=== PATIENT | male | born 1965 | race Caucasian/White ===

== ENCOUNTER → 2018-09-07 15:17 | Outpatient (CLI) | payer BC, SELFPAY ==
[2018-09-07 18:19] LABS: Absolute Lymphocyte Count 2.18 X10^3/ul (0.83-4.51); Absolute Neutrophil Count 3.4 X10^3/uL (2.0-7.7); Basophil# 0.02 X10^3/uL; Basophil% 0.3 % (0-1); Eosinophil# 0.16 X10^3/uL; Eosinophils% 2.6 % (0-5); Hematocrit 42.3 % (40-54); Hemoglobin 13.1 g/dl (13.0-16.5); Lymphocyte # 2.18 X10^3/ul (4.0); Lymphocyte % 35.4 % (19-41); Mean Corpuscular Volume 90.4 fL (80-94); Mean Platelet Vol. 10.9 fl (6.2-12.0); Monocyte# 0.44 X10^3/uL; Monocyte% 7.1 % (0-10); Neutrophil # 3.35 X10^3/uL (2.7-7.7); Neutrophil % 54.4 % (47-70); Platelet Count 223 K/mm3 (150-450); RBC Distribution Width SD 45.9 fl (35.1-43.9); Red Blood Count 4.68 M/mm3 (4.6-6.2); White Blood Count 6.2 K/mm3 (4.4-11.0)
[2018-09-07 18:32] LABS: POSITIVE COUNT NO; POSITIVE DIFFERENTIAL NO; POSITIVE MORPHOLOGY NO
== END ==
PROVIDERS: Family Provider Internal Medicine; PCP Internal Medicine; Referring Provider Nurse Practitioner Family; Visit Provider Nurse Practitioner Family
DX: R63.4 Abnormal weight loss (principal); Z12.5 Encounter for screening for malignant neoplasm of prostate
CPT/HCPCS: 36415; 85025

== ENCOUNTER 2018-09-26 06:13 | Day surgery (SDC) | payer BC, SELFPAY ==
[2018-08-24 16:04] VITALS: BMI 23.6
[2018-09-26 06:26] VITALS: BP 119/81; PULSE 65; RESP 14; TEMP 36.6; O2SAT 100; BMI 23.0
--- NOTE | 2018-09-26 07:55 | HP.PCM_ITS ---
Problem List (1) Screen for colon cancer Status: Acute History of Present Illness Date of Admission: 09/26/18 The patient is a 52 year old M who presents for screening colonoscopy Past Medical History Past Medical History (Chronic Problems): Chronic Problems (Last Reviewed 08/24/18 @ 16:05 by Chey Correia) Osteoarthritis of knees, bilateral (Chronic) Medical History: Medical History (Last Reviewed 09/26/18 @ 07:54 by Brady Lomeli MD) mencus repair and ACL on left knee recostructive right knee Osteoarthritis M19.90 Allergies No Known Allergies Allergy (Unverified 08/24/18 16:05) Home Medications: Ambulatory Orders Medication Instructions Recorded celecoxib 100 mg capsule 100 mg PO BID #180 cap 06/27/18 [place] 1 cap PO DAILY PRN PRN 09/21/18 Surgical History: Surgical History (Last Reviewed 09/26/18 @ 07:54 by Brady Lomeli MD) S/P left rotator cuff repair Z98.890 Smoking Status: Former smoker Tobacco Use: Chew - *Family History Maternal Family History: Family History (Last Reviewed 09/26/18 @ 07:55 by Brady Lomeli MD) Mother Hypertension Breast cancer Cancer of nasal cavity and sinus Hyperlipidemia Father Hypertension Parkinsons Prostate cancer Sister autoimmune disorder, unspecified Review of Systems Cardiovascular: Denies: Chest Pain, Chest Pressure, Chest Tightness, Palpitations Respiratory: Denies: Cough, Hemoptysis, Shortness of breath at rest, Shortness o f breath upon exertion, Wheezing Gastrointestinal: Denies: Abdominal Pain, Constipation, Diarrhea, Hematemesis, Nausea, Melena, Vomiting VTE Information - Inpt Only VTE Present on Admission: No VTE Mechan Device Prophylaxis: None VTE Pharm Prophylaxis ordered?: No Reason prophylaxis not ordered:: Treatment Not Indicated Patient Problems: Active and Suspected Problems (Last Reviewed 08/24/18 @ 16:05 by Chey Correia) Screen for colon cancer (Acute) - Physical Exam General: Alert, Oriented x3 Lungs: Clear to auscultation Cardiovascular: Regular rate, Regular Rhythm, No murmurs Abdomen: Bowel Sounds Present, Soft, Non Tender, Non-Distended Vital Signs Temp Pulse Resp BP Pulse Ox 97.9 F 65 14 119/81 H 100 09/26/18 06:26 09/26/18 06:26 09/26/18 06:26 09/26/18 06:26 09/26/18 06:26 Oxygen Delivery Method Room Air Weight: 174 lb 9.698 oz Body Mass Index (BMI) 23.0 Assessment/Plan All Active Problems (Last Reviewed 08/24/18 @ 16:05 by Chey Correia) Screen for colon cancer (Acute) My plan is to perform a colonoscopy on the patient.
[2018-09-26 07:56] VITALS: BP 116/71; BP 119/81; PULSE 70; RESP 18; TEMP 36.6; O2SAT 100
--- NOTE | 2018-09-26 07:59 | OP.ENDO_ITS ---
Patient Name: Wolfgang Buitrago Procedure Date: 09/26/2018 7:18 AM Date of : 1965 Age: 52 Procedure: Colonoscopy Indications: Screening for colorectal malignant neoplasm Providers: Brady Lomeli MD Referring MD: Brady Lomeli MD Medicines: See the Anesthesia note for documentation of the administered medications Patient Profile: This is a 52 year old male. Refer to note in patient chart for documentation of history and physical. Last Colonoscopy: none. The patient's first colonoscopy is today. Complications: No immediate complications. Procedure: Pre-Anesthesia Assessment: - Prior to the procedure, a History and Physical was performed, and patient medications and allergies were reviewed. The patient's tolerance of previous anesthesia was also reviewed. The risks and benefits of the procedure and the sedation options and risks were discussed with the patient. All questions were answered, and informed consent was obtained. Prior Anticoagulants: The patient has taken no previous anticoagulant or antiplatelet agents. ASA Grade Assessment: II - A patient with mild systemic disease. After reviewing the risks and benefits, the patient was deemed in satisfactory condition to undergo the procedure. After I obtained informed consent, the scope was passed under direct vision. Throughout the procedure, the patient's blood pressure, pulse, and oxygen saturations were monitored continuously. The colonoscope was introduced through the anus and advanced to the cecum, identified by appendiceal orifice and ileocecal valve. The colonoscopy was performed without difficulty. The patient tolerated the procedure well. The quality of the bowel preparation was inadequate. Scope In: 7:31:26 AM Scope Withdrawal Time 0 hours 9 minutes 59 seconds Scope Out: 7:51:37 AM Total Procedure Duration Time 0 hours 20 minutes 11 seconds Findings: A large amount of stool was found in the entire colon, interfering with visualization. No biopsies or other specimens were collected for this exam. The exam was otherwise without abnormality on direct and retroflexion views. Impression: - Preparation of the colon was inadequate. - Stool in the entire examined colon. No specimens collected. - The examination was otherwise normal on direct and retroflexion views. Recommendation: - Discharge patient to home. - Resume previous diet. - Continue present medications. - Repeat colonoscopy in 1 year because the bowel preparation was poor. - Return to my office in 1 month. Procedure Code(s): --- Professional --- 60486, Colonoscopy, flexible; diagnostic, including collection of specimen(s) by brushing or washing, when performed (separate procedure) Diagnosis Code(s): --- Professional --- Z12.11, Encounter for screening for malignant neoplasm of colon CPT copyright 2017 [employer]. All rights reserved. The codes documented in this report are preliminary and upon medical record coder review may be revised to meet current compliance requirements. MD Brady Herrera MD 09/26/2018 7:59:19 AM This report has been signed electronically. Number of Addenda: 0 Note Initiated On: 09/26/2018 7:18 AM
[2018-09-26 08:00] VITALS: BP 116/73; BP 119/81; PULSE 61; RESP 18; O2SAT 99
[2018-09-26 08:05] VITALS: BP 117/74; BP 119/81; PULSE 55; RESP 18; O2SAT 100
[2018-09-26 08:10] VITALS: BP 115/75; BP 119/81; PULSE 63; RESP 18; TEMP 36.1; O2SAT 100
[2018-09-26 08:18] VITALS: BP 119/81
== END 2018-09-26 08:29 | disposition home or self-care (01) ==
LOC: EN 06:14 → AC 06:14
PROVIDERS: Family Provider Internal Medicine; PCP Internal Medicine; Referring Provider Surgery; Visit Provider Surgery
PROC: 0DJD8ZZ Inspection of Lower Intestinal Tract, Via Natural or Artificial Opening Endoscopic (ICD-10-PCS; CPT 45378; principal; 2018-09-26 07:25)
DX: Z12.11 Encounter for screening for malignant neoplasm of colon (principal); K59.00 Constipation, unspecified; M17.0 Bilateral primary osteoarthritis of knee; F17.220 Nicotine dependence, chewing tobacco, uncomplicated; F17.210 Nicotine dependence, cigarettes, uncomplicated; Z79.899 Other long term (current) drug therapy
CPT/HCPCS: 45378; J7120; J1610

== ENCOUNTER → 2019-05-03 08:47 | Outpatient (CLI) | payer BC, SELFPAY ==
[2019-05-03 08:26] VITALS: BMI 23.0
[2019-05-03 12:48] LABS: Absolute Lymphocyte Count 1.72 X10^3/ul (0.83-4.51); Absolute Neutrophil Count 2.3 X10^3/uL (2.0-7.7); Basophil# 0.02 X10^3/uL; Basophil% 0.4 % (0-1); Eosinophil# 0.14 X10^3/uL; Eosinophils% 3.1 % (0-5); Hematocrit 42.4 % (40-54); Hemoglobin 13.7 g/dl (13.0-16.5); Lymphocyte # 1.72 X10^3/ul (4.0); Lymphocyte % 37.5 % (19-41); Mean Corp Hgb Conc 32.3 g/gl (32-36); Mean Corpuscular Hgb 28.3 pg (27.0-32.0); Mean Corpuscular Volume 87.6 fL (80-94); Mean Platelet Vol. 10.6 fl (6.2-12.0); Monocyte# 0.44 X10^3/uL; Monocyte% 9.6 % (0-10); Neutrophil # 2.26 X10^3/uL (2.7-7.7); Neutrophil % 49.2 % (47-70); Platelet Count 232 K/mm3 (150-450); RBC Distribution Width CV 13.8 % (11.6-14.6); RBC Distribution Width SD 43.8 fl (35.1-43.9); Red Blood Count 4.84 M/mm3 (4.6-6.2); White Blood Count 4.6 K/mm3 (4.4-11.0)
[2019-05-03 12:53] LABS: POSITIVE COUNT NO; POSITIVE DIFFERENTIAL NO; POSITIVE MORPHOLOGY NO
[2019-05-03 13:13] LABS: ALB/GLOB Ratio 1.5 RATIO (0.9-2.4); AST(SGOT) 30 U/L (15-37); Alanine Aminotransfer ALT/SGPT 29 U/L (16-61); Albumin, Serum 4.1 g/dL (3.2-5.0); Alkaline Phosphatase 85 U/L (45-117); Anion Gap 5 (5-15); BUN 24 mg/dL (7-18); BUN/Creat Ratio 25.3 RATIO (10-20); Calcium,Total 9.1 mg/dL (8.5-10.1); Chloride 107 mmol/L (98-107); Creatinine, Serum 0.95 mg/dL (0.70-1.30); EST Glomerular Filtration Rate 87 mL/min (>60); Est Glom Filt Rate - Afr Amer 106 mL/min (>60); Globulin 2.8 g/dL (2.2-4.2); Glucose 88 mg/dL (74-106); Potassium 4.3 mmol/L (3.5-5.1); Protein, Total 6.9 g/dL (6.4-8.2); Sodium Level 140 mmol/L (136-145)
== END ==
PROVIDERS: Family Provider Internal Medicine; PCP Internal Medicine; Visit Provider Internal Medicine
DX: R10.9 Unspecified abdominal pain (principal)
CPT/HCPCS: 36415; 80053; 85025

== ENCOUNTER → 2020-02-21 | Outpatient (CLI) | payer BC, SELFPAY ==
[2020-01-30 11:00] VITALS: BMI 23.0
== END | disposition home or self-care (01) ==
LOC: LABSPEC 02-24 13:16
PROVIDERS: PCP Internal Medicine; Referring Provider Nurse Practitioner Family; Visit Provider Nurse Practitioner Family
DX: R05 Cough (principal); Z20.828 Contact with and (suspected) exposure to other viral communicable diseases
CPT/HCPCS: 87635; G2023; U0004

== ENCOUNTER → 2020-08-19 16:01 | Outpatient (CLI) | payer BC, SELFPAY ==
[2020-08-19 15:29] VITALS: BMI 24.3
[2020-08-19 17:10] LABS: Absolute Lymphocyte Count 2.07 X10^3/uL (0.83-4.51); Absolute Neutrophil Count 3.1 X10^3/uL (2.0-7.7); Basophil# 0.02 X10^3/uL; Basophil% 0.4 % (0-1); Eosinophils% 1.8 % (0-5); Hematocrit 44.2 % (40-54); Hemoglobin 13.6 g/dL (13.0-16.5); Lymphocyte # 2.07 X10^3/ul (4.0); Lymphocyte % 36.8 % (19-41); Mean Corp Hgb Conc 30.8 g/dL (32-36); Mean Corpuscular Hgb 28.1 pg (27.0-32.0); Mean Corpuscular Volume 91.3 fL (80-94); Mean Platelet Vol. 10.4 fl (6.2-12.0); Monocyte# 0.32 X10^3/uL; Monocyte% 5.7 % (0-10); NRBC Flagged by Analyzer 0 % (0-5); Neutrophil # 3.11 X10^3/uL (2.7-7.7); Neutrophil % 55.1 % (47-70); Platelet Count 243 K/mm3 (150-450); RBC Distribution Width CV 13.4 % (11.6-14.6); RBC Distribution Width SD 45.5 fl (35.1-43.9); Red Blood Count 4.84 M/mm3 (4.6-6.2); White Blood Count 5.6 K/mm3 (4.4-11.0)
[2020-08-19 17:29] LABS: Erythrocyte Sedimentation Rate < 1 mm/hr (0-20)
[2020-08-19 18:00] LABS: Vitamin D,25 Hydroxy 33.1 ng/mL
[2020-08-19 18:16] LABS: ALB/GLOB Ratio 1.4 RATIO (0.9-2.4); AST(SGOT) 24 U/L (15-37); Alanine Aminotransfer ALT/SGPT 28 U/L (16-61); Albumin, Serum 4.3 g/dL (3.2-5.0); Alkaline Phosphatase 78 U/L (45-117); Anion Gap 5 (5-15); BUN 17 mg/dL (7-18); CRP < 2.90 mg/L (0.0-3.0); Calcium,Total 9.1 mg/dL (8.5-10.1); Chloride 105 mmol/L (98-107); Cholesterol 136 mg/dL (200); EST Glomerular Filtration Rate 93 mL/min (>60); Est Glom Filt Rate - Afr Amer 112 mL/min (>60); Glucose 77 mg/dL (74-106); High Density Lipoprotein 81 mg/dL; PSA,Total - Annual Screen 1.12 ng/mL (0.00-4.00); Potassium 4.4 mmol/L (3.5-5.1); Protein, Total 7.3 g/dL (6.4-8.2); Rheumatoid Factor < 10.0 IU/mL (<15); Sodium Level 141 mmol/L (136-145); Thyroid Stim Hormone (TSH) 1.86 uIU/mL (0.358-3.74); Triglycerides 46 mg/dL; Very Low Density Lipoprotein 9 mg/dL (5-40)
[2020-08-21 15:27] LABS: ANTINUCLEAR ANTIBODIES DIRECT Negative (Negative)
== END ==
PROVIDERS: PCP Internal Medicine; Referring Provider Nurse Practitioner Family; Visit Provider Nurse Practitioner Family
DX: Z13.220 Encounter for screening for lipoid disorders (principal); Z12.5 Encounter for screening for malignant neoplasm of prostate; M25.50 Pain in unspecified joint; R53.83 Other fatigue; E55.9 Vitamin D deficiency, unspecified
CPT/HCPCS: 36415; 80053; 80061; 82306; 84153; 84443; 85025; 85652; 86038; 86140; 86225; 86235; 86431; G0103

== ENCOUNTER → 2020-11-10 10:47 | Outpatient (CLI) | payer BC, SELFPAY ==
[2020-10-30 10:28] VITALS: BMI 24.3
--- NOTE | 2020-11-10 10:49 | US_ITS ---
STUDY: ABDOMINAL ULTRASOUND - RIGHT UPPER QUADRANT REASON FOR VISIT: Male, 55 years old EPIGASTRIC PAIN POST MEALS TECHNIQUE: Ultrasound evaluation of the right upper quadrant was performed with real-time and static davis-scale imaging. TECHNICAL QUALITY: Adequate. COMPARISON: None. FINDINGS: Liver: The liver measures 17.8 cm. There is normal echogenicity of the liver. The bile ducts are within normal limits. There is hepatic color flow. The direction of portal flow is hepatopetal. There is no demonstrated mass lesion. Gallbladder: Normal distended gallbladder. The gallbladder wall measures 1.2 mm. There is a negative sonographic Alvarado''s sign. There is no pericholecystic fluid. There are no gallstones. Common Bile Duct (C.B.D.): The common bile duct measures 3.5 mm. Pancreas: Normal size of the head, body and tail of the pancreas. There is normal echogenicity of the pancreas. There is no demonstrated pancreatic mass or cyst. Right Kidney: Normal size of the right kidney. The right kidney measures 12 cm x 5.3 cm x 4.1 cm. Normal renal cortex. The right cortex measures 1.7 cm. There is no demonstrated renal mass or cyst. There is no right hydronephrosis. US/Gallbladder IMPRESSION: Normal right upper quadrant ultrasound examination. Electronically Signed: Ezra Gaona MD at 14:33 EST , Service support ,
== END ==
PROVIDERS: PCP Internal Medicine; Referring Provider Surgery; Visit Provider Surgery
DX: R10.11 Right upper quadrant pain (principal)
CPT/HCPCS: 76705

== ENCOUNTER 2020-11-27 07:01 | Day surgery (SDC) | payer BC, SELFPAY ==
[2020-10-30 10:28] VITALS: BMI 24.3
[2020-11-27] VITALS (7 sets, daily range): BP systolic 016–123; BP diastolic 66–79; PULSE 57–66; RESP 16–18; TEMP 36.3–36.8; O2SAT 98–100; BMI 24.1
--- NOTE | 2020-11-27 05:15 | HP_ITS ---
Intake Vital Signs 10/30/20 BMI 24.3 Intake Visit Reasons: DISCUSS EGD, PRILOSEC NOT HELPING Chief Complaint: Discuss EGD/Medicine not working Maxillofacial Surgeon Required: No Is patient in pain?: No Allergies No Known Allergies Allergy (Verified 11/03/20 14:39) Medications meloxicam 7.5 mg tablet 7.5 mg PO DAILY PRN #60 tab 08/19/20 [Rx Confirmed 11/03/20] pantoprazole 40 mg tablet,delayed release 40 mg PO BID #180 tab 10/14/20 [Rx Confirmed 11/03/20] PFS Medical History Abdominal pain (Chronic) Epigastric pain (Acute) GERD (gastroesophageal reflux disease) (Acute) Osteoarthritis (Chronic) Surgical History History of appendectomy (Acute) S/P left rotator cuff repair (Acute) mencus repair and ACL on left knee (Acute) recostructive right knee (Acute) Family History Mother Hypertension Breast cancer Cancer of nasal cavity and sinus Hyperlipidemia Arthritis Diabetes Father Hypertension Parkinsons Prostate cancer Sister autoimmune disorder, unspecified Social History (Updated 11/03/20 @ 14:[address] Abel Murray MD) Smoking Status: Former smoker alcohol intake: current alcohol intake frequency: 0-2 drinks per day Alcohol type: beer substance use type: does not use what type of physical activity do you participate in: walking, bicycling frequency: 1-2 times per week HPI HPI HPI: RIKKI BRAN, is a 55 M who presents to the office today for HPI HPI Surgical H&P: Yes HPI: RIKKI BRAN, is a 55 M who presents to the office today for epigastric pain. The patient was started on omeprazole in August and reports that this did not help. He is having pain especially with after eating. Patient does not report any nausea vomiting or radiation of the pain. ROS General General: Yes fatigue; no weight change, appetite, colon cancer, breast cancer or weakness HEENT HEENT: No difficulty swallowing, eye injury, eye surgery, swollen glands or hoarseness Endo Endocrine: No thyroid disease, diabetes mellitus, thyroid cancer, Hair loss, heat intolerance or cold intolerance Skin Skin: No rash or changing moles Breast Breast: No left breast lump, right breast lump, nipple discharge, breast pain, abnormal mammogram, abnormal US or breast enlargement Musc Musculoskeletal: Yes arthritis; no back problems, rheumatoid arthritis, gout or joint pain Cardio Cardiovascular: No murmur, pacemaker, heart disease, atrial fibrillation, high blood pressure, heart attack, heart stent, palpitations, shortness of breat with exertion or chest pain Psych Psychiatric: No depression, anxiety or hearing voices Resp Respiratory: No shortness of breath, No sleep apnea, No cough, No COPD, No asthma, No emphysema, No wheezing Gastro Gastrointestinal: Yes abdominal pain, Yes nausea or vomiting, No diarrhea, No constipation, No blood in stool, Yes acid reflux, No hemorrhoids, No ulcers, No gallbladder problem, No black,tarry stools Johnny Hematologic: No blood thinners, No blood disorders, No bleeding, No anemia, No blood clots Neuro Neurologic: No system reviewed and no additional complaints, except as docu, No as per HPI, No abnormal walking, No abnormal hearing, No abnormal movements, No abnormal speech, No behavioral changes, No burning sensations, No confusion, No seizure-like activity, No unsteadiness, No dizziness, No localized weakness, No frequent falls, No headache(s), No lack of coordination, No loss of vision, No memory loss, No numbness, No other visual disturbances, No radiating pain, No restless legs, No sensory deficit, No fainting, No tingling, No tremor(s), No weakness, No other Exam Const General: cooperative Orientation: alert, oriented x3 Chest Breast Palpation: No nipple discharge Resp Effort & Inspection: normal respiratory effort Auscultation: clear to auscultation bilaterally Cardio Rate: regular rate Rhythm: regular rhythm Heart Sounds: no murmurs GI Inspection: non-distended Palpation: soft, nontender Assessment & Plan Problems 1. RUQ pain R10.11 2. Epigastric pain R10.13 Plan The patient is having epigastric pain that has not been improved on omeprazole. I would like to perform an EGD and order an ultrasound of his gallbladder. I explained endoscopy in detail to the patient. I explained the risks including but not limited to stroke or heart attack with anesthesia, perforation of the GI tract, bleeding, infection. I explained that any of these could necessitate further emergency surgery. The patient understands and all questions were answered sufficiently. The patient wishes to proceed with procedure. We discussed the current risks associated with COVID-19. While it is understood that there is a community spread of COVID-19, the risk of desirae COVID-19 while at [facility] ([facility]) is very low; however, the risk cannot be completely mitigated because of the community spread of the disease. We discussed in detail the risk of exposure to and/or potential harm posed by the COVID-19 virus with having a surgery/procedure at this time versus the risk of delaying the surgery/procedure. It is not possible to know either the risk of delaying the surgery or procedure or chance of getting an infection with perfect accuracy, but a joint decision was made to proceed at this time with the scheduled surgery/procedure as indicated on the consent form. Patient was notified that we will need to comply with any screening or testing [facility] wishes to perform or that surgery may be delayed for any positive results. Abel Murray MD Pager: [facility] [address] [place] [address], [address] [place] [address] Office: Orders Orders: EGD Today R10.13 Gallbladder Today R10.11 Coding Level of Care Code Off vis,est,level 3 Diagnoses RUQ pain R10.11 Epigastric pain R10.13 I have re-examined the patient. There are no clinical changes since date of exam.
[2020-11-27] MEDS: Lactated Ringers 1,000 ML 100 ML IV (07:29)
--- NOTE | 2020-11-27 07:52 | OP.EGD_ITS ---
Patient Name: Wolfagng Buitrago Procedure Date: 11/27/2020 7:26 AM Date of : 1965 Age: 55 Procedure: Upper GI endoscopy Indications: Epigastric abdominal pain Providers: Abel Murray MD Referring MD: Ramon Judge MD Medicines: Monitored Anesthesia Care Patient Profile: This is a 55 year old male. Refer to note in patient chart for documentation of history and physical. Complications: No immediate complications. Estimated blood loss: None. Procedure: Pre-Anesthesia Assessment: - Prior to the procedure, a History and Physical was performed, and patient medications and allergies were reviewed. The patient's tolerance of previous anesthesia was also reviewed. The risks and benefits of the procedure and the sedation options and risks were discussed with the patient. All questions were answered, and informed consent was obtained. Prior Anticoagulants: The patient has taken no previous anticoagulant or antiplatelet agents. After reviewing the risks and benefits, the patient was deemed in satisfactory condition to undergo the procedure. After obtaining informed consent, the endoscope was passed under direct vision. Throughout the procedure, the patient's blood pressure, pulse, and oxygen saturations were monitored continuously. The gastroscope was introduced through the mouth, and advanced to the second part of duodenum. The upper GI endoscopy was accomplished without difficulty. The patient tolerated the procedure well. Scope In: 7:38:07 AM Scope Out: 7:40:48 AM Total Procedure Duration Time 0 hours 2 minutes 41 seconds Findings: The esophagus was normal. The examined duodenum was normal. Mild inflammation was found in the stomach. Biopsies were taken with a cold forceps for Helicobacter pylori testing. Impression: - Normal esophagus. - Normal examined duodenum. - Gastritis. Biopsied. Recommendation: - Discharge patient to home. - Resume previous diet. - Continue present medications. - Use sucralfate tablets 1 gram PO QID for 1 month. Procedure Code(s): --- Professional --- 17849, Esophagogastroduodenoscopy, flexible, transoral; with biopsy, single or multiple Diagnosis Code(s): --- Professional --- K29.70, Gastritis, unspecified, without bleeding R10.13, Epigastric pain CPT copyright 2017 [employer]. All rights reserved. The codes documented in this report are preliminary and upon state editor review may be revised to meet current compliance requirements. Abel Murray MD 11/27/2020 7:52:18 AM This report has been signed electronically. Number of Addenda: 0 Note Initiated On: 11/27/2020 7:26 AM
--- NOTE | 2020-11-27 07:52 | OP.CCLET_ITS ---
11/27/2020 Ramon Judge MD [address] [place] [address] [place] [address] Re : Upper GI endoscopy procedure for Wolfgang Buitrago Dear Dr. Judge This procedure was performed on Friday, November 27, 2020. My impressions and recommendations are as follows: Impressions : - Normal esophagus. - Normal examined duodenum. - Gastritis. Biopsied. Recommendations : - Discharge patient to home. - Resume previous diet. - Continue present medications. - Use sucralfate tablets 1 gram PO QID for 1 month. My findings are described in the full procedure note, which is enclosed. If I can be of further assistance, please feel free to contact me at Doctor phone number(s): , Work: . Sincerely, Abel Murray MD 11/27/2020 7:52:18 AM This report has been signed electronically.
--- NOTE | 2020-11-27 08:00 | IMM_PTH ---
PATIENT: RIKKI BRAN LOC: EN U#:[id number] AGE/SX: 55/M ROOM: RE11/27/[address]: Dr. Abel Murray MD : 1965 BED: DIS: 11/27/2020 SPEC #: [id number] RECD: 11/27/20 11:37 STATUS: GODFREY MOUNA #: [id number] SAMANTHA: 11/27/20 08:[address]: Abel Murray DEPT: IMMUNOHISTOCHEMISTRY RECD BY: Dana Lang ENTERED: 11/27/20 11:37 SP TYPE: IMMUNO OTHR DR: Dr. Ramon Judge MD Tissues: Stomach, NOS Procedures: H Pylori (initial) KI-67 (add) P53 (add) PHYSICIAN & INSTITUTION [place] [phone] SPECIMEN INFORMATION: Tissue Source: Antrum biopsy Clinical Info: RUQ pain, epigastric pain Specimen Number: [id number] CPT code: 45201, 25748 x2 METHODOLOGY: Deparaffinized sections of prefer/formalin-fixed tissue or PAP/DQ stained slides are incubated with monoclonal/polyclonal antibodies/oligonucleotide probes. Localization is made via biotin free immunoperoxidase method. Appropriate controls are performed and reacted as expected. Results on target cell population are indicated in the following table: RESULTS: ANTIBODY / CLONE RESULT H Pylori (polyclonal) negative P53 (DO-7) negative Ki-67 (30-9) negative These tests were developed and their performance characteristics determined by [facility]. They may not have been cleared or approved by the U.S. Food and Drug Administration. The FDA has determined that such clearance or approval is not necessary. The above immunohistochemical/dualISH markers are ordered and reviewed by the pathologist. INTERPRETATION: Antrum biopsy: No evidence of dysplasia. Negative for Helicobacter pylori organisms. AM:chidi 12/01/2020
--- NOTE | 2020-11-27 08:00 | EGD_PTH ---
PATIENT: RIKKI BRAN LOC: EN U#:[id number] AGE/SX: 55/M ROOM: RE11/27/[address]: Dr. Abel Murray MD : 1965 BED: DIS: 11/27/2020 SPEC #: [id number] RECD: 11/27/20 11:06 STATUS: GODFREY MOUNA #: [id number] SAMANTHA: 11/27/20 08:[address]: Abel Murray DEPT: SURGICAL PATHOLOGY RECD BY: Phillip Griffiths ENTERED: 11/27/20 12:03 SP TYPE: EGD BIOPSY OT DR: Dr. Ramon Judge MD Tissues: Gastric mucous membrane Procedures: Special Stain Group II Surgery Specimen Level IV Alcian Blue/PAS (control) HEADER OPERATION[place] [place] DIAGNOSIS: RUQ pain, epigastric pain TISSUE SUBMITTED: Antrum biopsy for histo and H. pylori MICROSCOPIC DIAGNOSIS Gastric antrum, biopsy: Chronic gastritis. Focal intestinal metaplasia. No evidence of dysplasia. See comment. AM:chidi 11/30/2020 COMMENT The results of immunohistochemistry for Helicobacter pylori will be reported separately ([id number]). Alcian blue/PAS stain with matched control supports the above diagnosis. MICROSCOPIC DESCRIPTION Slides are reviewed. GROSS DESCRIPTION Received in fixative is one container labeled with the patient's name and designated antrum biopsy. The specimen consists of multiple irregular fragments of light buckley soft tissue that in aggregate measure 0.7 x 0.6 x 0.1 cm. The specimen is totally submitted in one cassette. / AM:chidi 11/27/20 TC:3 CPT: 87212, 67023
== END 2020-11-27 08:20 | disposition home or self-care (01) ==
LOC: EN 07:02 → AC 07:03
PROVIDERS: PCP Internal Medicine; Referring Provider Internal Medicine; Visit Provider Surgery
PROC: 0DJ08ZZ Inspection of Upper Intestinal Tract, Via Natural or Artificial Opening Endoscopic (ICD-10-PCS; CPT 43235; principal; 2020-11-27 07:55)
DX: K29.50 Unspecified chronic gastritis without bleeding (principal); K21.9 Gastro-esophageal reflux disease without esophagitis; M19.90 Unspecified osteoarthritis, unspecified site; Z87.891 Personal history of nicotine dependence; Z20.822 Contact with and (suspected) exposure to COVID-19
CPT/HCPCS: 43239; 87426; 88305; 88313; 88341; 88342; C9803; J7120

== ENCOUNTER → 2020-12-01 15:50 | Outpatient (CLI) | payer BC, SELFPAY ==
[2020-11-27 07:16] VITALS: BMI 24.1
[2020-12-05 16:08] LABS: Testosterone, Free 6.15 ng/dL (5.00-21.00)
[2020-12-05 16:50] LABS: Testosterone, % Free 1.57 % (1.50-4.20); Testosterone, Total 392 ng/dL (264-916)
== END ==
PROVIDERS: PCP Internal Medicine; Referring Provider Internal Medicine; Visit Provider Internal Medicine
DX: N52.9 Male erectile dysfunction, unspecified (principal)
CPT/HCPCS: 36415; 84402; 84403

== ENCOUNTER → 2023-05-20 | Outpatient (CLI) | payer BC, SELFPAY ==
--- NOTE | 2023-05-20 07:28 | MRI_ITS ---
STUDY: MRI LUMBAR SPINE WITHOUT CONTRAST REASON FOR EXAM: Male, 57 years old. RADICULOPATHY TECHNIQUE: Standardized fat and water weighted pulse sequences were obtained in the sagittal and axial planes. COMPARISON: None FINDINGS: T12-L1: Normal endplates. Normal disc height, hydration and morphology. Normal bilateral facet joints. Normal central canal and bilateral lateral recesses. Normal bilateral intervertebral neural foramina. Normal lumbar lordosis. There is no substantial scoliosis. Normal conus medullaris that terminates at the L1/L2. Chronic microtrabecular stress reaction of the pedicles of L5. L1-2: Disc desiccation but no disc protrusion, spinal stenosis, or neural foraminal stenosis. L2-3: Normal endplates. Normal disc height, hydration and morphology. Normal bilateral facet joints. Normal central canal and bilateral lateral recesses. Normal bilateral intervertebral neural foramina. L3-4: Disc desiccation with a left foraminal protrusion with no spinal stenosis with moderate left neural foraminal stenosis with abutment of the exiting left L3 nerve root laterally. L4-5: Mild bilateral facet hypertrophy and ligament flavum hypertrophy. Moderate broad disc protrusion produces moderate spinal stenosis and moderate bilateral neural foraminal stenosis with abutment of the exiting L4 nerve roots bilaterally. L5-S1: Moderate broad disc protrusion produces moderate spinal stenosis with moderate bilateral lateral recess stenosis with abutment of the S1 nerve roots bilaterally and mild left neural foraminal stenosis. Normal visualized sacral ala. Normal visualized paraspinous soft tissue structures. MRI/Spine Lumbar (Routine) IMPRESSION: Multilevel degenerative changes, as described above. Electronically Signed: Alfonso Aragon MD at 22:45 EDT ,
== END | disposition home or self-care (01) ==
LOC: MRI 07:27
PROVIDERS: PCP Internal Medicine; Referring Provider Anesthesiology Pain Medicine; Visit Provider Anesthesiology Pain Medicine
DX: M54.16 Radiculopathy, lumbar region (principal)
CPT/HCPCS: 72148

== ENCOUNTER → 2023-07-21 | Outpatient (CLI) | payer BC, SELFPAY ==
[2023-07-21 08:10] LABS: Absolute Lymphocyte Count 1.67 X10^3/uL (0.83-4.51); Absolute Neutrophil Count 2.5 X10^3/uL (2.0-7.7); Basophil# 0.01 X10^3/uL; Basophil% 0.2 % (0-1); Eosinophil# 0.22 X10^3/uL; Eosinophils% 4.6 % (0-5); Hematocrit 43.6 % (40-54); Lymphocyte # 1.67 X10^3/ul (0.83-4.51); Lymphocyte % 34.8 % (19-41); Mean Corp Hgb Conc 32.1 g/dL (32-36); Mean Corpuscular Hgb 29.5 pg (27.0-32.0); Mean Corpuscular Volume 91.8 fL (80-94); Mean Platelet Vol. 9.8 fl (6.2-12.0); Monocyte# 0.39 X10^3/uL; Monocyte% 8.1 % (0-10); NRBC Flagged by Analyzer 0 % (0-5); Neutrophil % 52.1 % (47-70); Platelet Count 240 K/mm3 (150-450); RBC Distribution Width CV 13.2 % (11.6-14.6); RBC Distribution Width SD 44.1 fl (35.1-43.9); Red Blood Count 4.75 M/mm3 (4.6-6.2); White Blood Count 4.8 K/mm3 (4.4-11.0)
[2023-07-21 08:51] LABS: ALB/GLOB Ratio 1.4 RATIO (0.9-2.4); AST(SGOT) 24 U/L (15-37); Alanine Aminotransfer ALT/SGPT 27 U/L (16-61); Albumin, Serum 3.8 g/dL (3.2-5.0); Alkaline Phosphatase 72 U/L (45-117); Anion Gap 3 (5-15); BUN 17 mg/dL (7-18); BUN/Creat Ratio 19.1 RATIO (10-20); Calcium,Total 8.7 mg/dL (8.5-10.1); Chloride 107 mmol/L (98-107); Cholesterol 123 mg/dL (200); Creatinine, Serum 0.89 mg/dL (0.70-1.30); EST Glomerular Filtration Rate 93 mL/min (>60); Est Glom Filt Rate - Afr Amer 112 mL/min (>60); Globulin 2.8 g/dL (2.2-4.2); Glucose 86 mg/dL (74-106); High Density Lipoprotein 67 mg/dL; PSA,Total - Annual Screen 1.38 ng/mL (0.00-4.00); Potassium 4.3 mmol/L (3.5-5.1); Protein, Total 6.6 g/dL (6.4-8.2); Sodium Level 139 mmol/L (136-145); Thyroid Stim Hormone (TSH) 1.09 uIU/mL (0.358-3.74); Triglycerides 46 mg/dL; Very Low Density Lipoprotein 9 mg/dL (5-40)
== END | disposition home or self-care (01) ==
LOC: LAB 06:39
PROVIDERS: Referring Provider Nurse Practitioner Family; Visit Provider Nurse Practitioner Family
DX: Z00.00 Encounter for general adult medical examination without abnormal findings (principal)
CPT/HCPCS: 36415; 80053; 80061; 84153; 84443; 85025; G0103

== ENCOUNTER → 2024-11-14 | Outpatient (CLI) | payer BC, SELFPAY ==
[2024-11-14 17:01] LABS: Absolute Lymphocyte Count 0.85 X10^3/uL (0.83-4.51); Absolute Neutrophil Count 3.4 X10^3/uL (2.0-7.7); Basophil# 0.01 X10^3/uL; Basophil% 0.2 % (0-1); Eosinophil# 0.01 X10^3/uL; Eosinophils% 0.2 % (0-5); Hematocrit 40.2 % (40-54); Hemoglobin 13.2 g/dL (13.0-16.5); Lymphocyte # 0.85 X10^3/ul (0.83-4.51); Lymphocyte % 18.4 % (19-41); Mean Corp Hgb Conc 32.8 g/dL (32-36); Mean Corpuscular Hgb 29.5 pg (27.0-32.0); Mean Corpuscular Volume 89.7 fL (80-94); Mean Platelet Vol. 9.5 fl (6.2-12.0); Monocyte# 0.37 X10^3/uL; NRBC Flagged by Analyzer 0 % (0-5); Neutrophil # 3.38 X10^3/uL (2.7-7.7); Platelet Count 205 K/mm3 (150-450); RBC Distribution Width CV 13.5 % (11.6-14.6); RBC Distribution Width SD 44.2 fl (35.1-43.9); Red Blood Count 4.48 M/mm3 (4.6-6.2); White Blood Count 4.6 K/mm3 (4.4-11.0)
[2024-11-14 17:27] LABS: ALB/GLOB Ratio 1.1 RATIO (0.9-2.4); AST(SGOT) 42 U/L (15-37); Alanine Aminotransfer ALT/SGPT 33 U/L (16-61); Albumin, Serum 3.7 g/dL (3.2-5.0); Alkaline Phosphatase 78 U/L (45-117); Anion Gap 4 (5-15); BUN 17 mg/dL (7-18); BUN/Creat Ratio 20.1 RATIO (10-20); Calcium,Total 8.9 mg/dL (8.5-10.1); Chloride 105 mmol/L (98-107); Cholesterol 116 mg/dL (200); Creatinine, Serum 0.84 mg/dL (0.70-1.30); EST Glomerular Filtration Rate 98 mL/min (>60); Est Glom Filt Rate - Afr Amer 119 mL/min (>60); Globulin 3.4 g/dL (2.2-4.2); Glucose 103 mg/dL (74-106); High Density Lipoprotein 68 mg/dL; PSA,Total - Annual Screen 1.12 ng/mL (0.00-4.00); Potassium 3.9 mmol/L (3.5-5.1); Protein, Total 7.1 g/dL (6.4-8.2); Sodium Level 138 mmol/L (136-145); Triglycerides 100 mg/dL; Very Low Density Lipoprotein 20 mg/dL (5-40)
[2024-11-14 18:48] LABS: Hemoglobin A1c 5.2 % (3.8-5.6)
== END | disposition home or self-care (01) ==
LOC: VSLAB 15:57
DX: Z00.00 Encounter for general adult medical examination without abnormal findings (principal); Z12.5 Encounter for screening for malignant neoplasm of prostate
CPT/HCPCS: 36415; 80053; 80061; 83036; 84153; 84443; 85025; G0103